=== PATIENT | male | born 1970 | race Caucasian/White ===

== ENCOUNTER 2016-08-13 08:42 | Emergency (ER) | payer OTHER ==
[~2016-08-13] VITALS: Ht 182.9 cm; Wt 109.1 kg
[~2016-08-13 08:42] MED LIST: ADVAIR 250/28 DISKU1 INH; ALBUTEROL2.5 MG/3 M; ALBUTEROL2.5 MG/3 M INH; AMBIEN10 MG PO; ATIVAN 0.50.5 MG/TAB PO; KETOROLAC10 MG PO; LEXAPRO5 MG; NORCO 325 MG-51 TA1 PO; PREDNISONE10 MG PO; PREDNISONE20 M1 PO; PROAIR RESPICL90 MCG IH; TOPROL XL 25MG25 MG PO; TYLENOL 325MG325 M1; XOPENEX 1.1.25 MG/3 IH; ZYLOPRIM 100MG100 MG PO
[2016-08-13] MEDS ORDERED: IPRATROPIUM BROM3 M1 IH (08:57)
[2016-08-13] MEDS ORDERED: PREDNISONE20 M1 PO (10:14)
[2016-08-13 10:56] VITALS: BP 126/78
== END 2016-08-13 10:30 | disposition home or self-care (01) ==
LOC: ED 08:42
DX: J45.901 Unspecified asthma with (acute) exacerbation (principal); F17.210 Nicotine dependence, cigarettes, uncomplicated; Z56.6 Other physical and mental strain related to work
CPT/HCPCS: J7512

== ENCOUNTER 2016-08-21 20:42 | Emergency (ER) | payer OTHER ==
[~2016-08-21] VITALS: Ht 188 cm; Wt 109.1 kg
[~2016-08-21 20:42] MED LIST changes: +IPRATROPIUM BROM3 M1 IH
[2016-08-21] MEDS ORDERED: AZITHROMYCIN 250MG PO (22:35)
[2016-08-21] MEDS ORDERED: CHERATUSSIN AC120 ML PO (22:41)
[2016-08-21 22:54] VITALS: BP 121/73
== END 2016-08-21 22:54 | disposition home or self-care (01) ==
LOC: ED 20:42
DX: J18.1 Lobar pneumonia, unspecified organism (principal); J45.901 Unspecified asthma with (acute) exacerbation; J02.9 Acute pharyngitis, unspecified; J04.0 Acute laryngitis; F17.210 Nicotine dependence, cigarettes, uncomplicated; Z71.6 Tobacco abuse counseling

== ENCOUNTER 2017-04-02 14:37 | Emergency (ER) | payer OTHER ==
[~2017-04-02] VITALS: Ht 185.4 cm; Wt 109.1 kg
[~2017-04-02 14:37] MED LIST changes: +AZITHROMYCIN 250MG PO; +CHERATUSSIN AC120 ML PO
[2017-04-02] MEDS ORDERED: IPRATROPIUM BROM3 M1 IH (14:55)
[2017-04-02] MEDS ORDERED: ADVIL 200MG TA200 MG PO (14:56)
[2017-04-02 16:21] LABS: HEMATOCRIT 43.3 % (42.0-52.0); HEMOGLOBIN 14.4 g/dL (13.5-18.0); MEAN CELL VOLUME 95 fl (78-100); MEAN CORPUSCULAR HEMOGLOBIN 31 pg (27-31); MEAN CORPUSCULAR HGB CONC 33 g/dL (33-37); MEAN PLATELET VOLUME 10.5 fl (7.4-10.4); MONO # 0.5 (0.20-0.80); PLATELET COUNT 192 K/mm3 (130-400); RED BLOOD COUNT 4.58 M/mm3 (4.20-5.60); RED CELL DISTRIBUTION WIDTH 14.2 % (11.5-14.5); WHITE BLOOD COUNT 5.6 K/mm3 (4.8-10.8)
[2017-04-02 16:47] LABS: ALBUMIN 3.4 g/dL (3.5-5.0); BUN/CREATININE RATIO 9.8 (6.0-26.0); CALCIUM 8.1 mg/dL (8.4-10.2); POTASSIUM 3.8 mmol/L (3.6-5.0); TOTAL BILIRUBIN 0.4 mg/dL (0.2-1.3); TOTAL PROTEIN 6.5 g/dL (6.3-8.2)
[2017-04-02 17:35] VITALS: BP 128/79
== END 2017-04-02 18:10 | disposition left against medical advice (07) ==
LOC: ED 14:37
PROVIDERS: Physician Assistant
DX: R05 Cough (principal); R50.9 Fever, unspecified; Z53.21 Procedure and treatment not carried out due to patient leaving prior to being seen by health care provider; M79.1 Myalgia; R09.89 Other specified symptoms and signs involving the circulatory and respiratory systems; R07.89 Other chest pain; R51 Headache; J45.909 Unspecified asthma, uncomplicated

== ENCOUNTER 2017-04-04 03:14 | Emergency (ER) | payer OTHER ==
[~2017-04-04] VITALS: Ht 182.9 cm; Wt 97.7 kg
[~2017-04-04 03:14] MED LIST changes: +ADVIL 200MG TA200 MG PO
[2017-04-04 05:13] LABS: BUN/CREATININE RATIO 12.6 (6.0-26.0); CALCIUM 8.7 mg/dL (8.4-10.2); POTASSIUM 4.1 mmol/L (3.6-5.0); TOTAL BILIRUBIN 0.9 mg/dL (0.2-1.3); TOTAL PROTEIN 7.7 g/dL (6.3-8.2)
[2017-04-04 05:15] LABS: HEMATOCRIT 47.1 % (42.0-52.0); HEMOGLOBIN 15.8 g/dL (13.5-18.0); LYMPH# 2.2 (1.50-4.00); MEAN CELL VOLUME 91 fl (78-100); MEAN CORPUSCULAR HEMOGLOBIN 31 pg (27-31); MEAN CORPUSCULAR HGB CONC 34 g/dL (33-37); MEAN PLATELET VOLUME 11.6 fl (7.4-10.4); MONO # 1.3 (0.20-0.80); NEU # 8.1 (1.40-6.50); PLATELET COUNT 191 K/mm3 (130-400); RED BLOOD COUNT 5.16 M/mm3 (4.20-5.60); RED CELL DISTRIBUTION WIDTH 14.1 % (11.5-14.5); WHITE BLOOD COUNT 11.6 K/mm3 (4.8-10.8)
[2017-04-04] MEDS ORDERED: ZOFRAN ODT4 MG PO (06:30)
[2017-04-04 07:35] VITALS: BP 127/71
== END 2017-04-04 07:35 | disposition home or self-care (01) ==
LOC: ED 03:14
PROVIDERS: Nurse Practitioner Primary Care
DX: E86.0 Dehydration (principal); R11.2 Nausea with vomiting, unspecified; R06.02 Shortness of breath; F17.210 Nicotine dependence, cigarettes, uncomplicated
CPT/HCPCS: J1885; J2405; J7030

== ENCOUNTER 2018-05-21 03:39 | Emergency (ER) | payer OTHER ==
[~2018-05-21] VITALS: Ht 188 cm; Wt 115.9 kg
[~2018-05-21 03:39] MED LIST changes: +ZOFRAN ODT4 MG PO
[2018-05-21] MEDS ORDERED: SYMBICORT1 AE3 IH (03:58)
[2018-05-21 04:17] LABS: EOS # 0.3 (0.04-0.40); HEMATOCRIT 47.4 % (42.0-52.0); HEMOGLOBIN 15.4 g/dL (13.5-18.0); LYMPH# 2.6 (1.50-4.00); MEAN CELL VOLUME 96 fl (78-100); MEAN CORPUSCULAR HEMOGLOBIN 31 pg (27-31); MEAN CORPUSCULAR HGB CONC 33 g/dL (33-37); MONO # 0.9 (0.20-0.80); NEU # 6.5 (1.40-6.50); PLATELET COUNT 310 K/mm3 (130-400); RED BLOOD COUNT 4.94 M/mm3 (4.20-5.60); RED CELL DISTRIBUTION WIDTH 13.9 % (11.5-14.5); WHITE BLOOD COUNT 10.4 K/mm3 (4.8-10.8)
[2018-05-21 04:26] LABS: ALBUMIN 4.3 g/dL (3.5-5.0); CALCIUM 9.2 mg/dL (8.4-10.2); POTASSIUM 4.4 mmol/L (3.6-5.0); TOTAL BILIRUBIN 0.5 mg/dL (0.2-1.3); TOTAL PROTEIN 7.6 g/dL (6.3-8.2)
[2018-05-21] MEDS ORDERED: PREDNISONE20 MG PO (05:10)
[2018-05-21 05:12] VITALS: BP 140/74
== END 2018-05-21 05:35 | disposition home or self-care (01) ==
LOC: ED 03:39
PROVIDERS: Nurse Practitioner Family
DX: J45.901 Unspecified asthma with (acute) exacerbation (principal); J20.9 Acute bronchitis, unspecified; F17.210 Nicotine dependence, cigarettes, uncomplicated; Z79.51 Long term (current) use of inhaled steroids
CPT/HCPCS: J2930

== ENCOUNTER → 2018-07-25 | Outpatient (CLI) | payer OTHER ==
[~2018-07-25] MED LIST changes: +PREDNISONE20 MG PO; +SYMBICORT1 AE3 IH
== END ==
LOC: RAD 10:20
DX: M19.071 Primary osteoarthritis, right ankle and foot (principal); M77.51 Other enthesopathy of right foot and ankle